=== PATIENT | male | born 1960 | race Caucasian/White ===

== ENCOUNTER 2019-07-16 17:18 | Emergency (ER) | payer MEDICAID, SELFPAY ==
[2019-07-16 17:20] VITALS: BP 141/87; PULSE 89; RESP 18; O2SAT 90; BMI 33.9
--- NOTE | 2019-07-16 17:48 | PC.NURSE ---
pt family member came out saying pt felt like he would pass out. Pt layed back on bed, bp checked , pt stated sudden syncopal feeling clammy to touch. vs wnl.
--- NOTE | 2019-07-16 17:59 | HMH.EDWNDL ---
ED Disposition Clinical Impression: Laceration Disposition: Home, Self-Care Condition on Discharge: Good Instructions: DI for Laceration Repair Referrals: Macrina Kong APRN [Primary Care Provider] - - Critical Care Critical Care Time: No Attestation: On 07/16/19, the high probability of a clinically significant, sudden or life threatening deterioration of the following system(s) required my full and direct attention, intervention and personal management. The time I documented below is in addition to time spent performing reported procedures but includes the following listed in this critical care notation. Medical Decision Making - Medical Records Medical records reviewed: Yes: I reviewed the patient's medical records. - Ari Inquiry Pt receiving controlled substance: No Vital Signs: 07/16/19 17:20 Pulse Rate [Radial] 89 Respiratory Rate 18 Blood Pressure [Right Arm] 141/87 H Blood Pressure Mean [Right Arm] 105 Blood Pressure Source [Right Arm] Automatic Cuff Blood Pressure Position [Right Arm] Sitting 02 Sat by Pulse Oximetry 90 L Oxygen Delivery Method Room Air - Lab Data Lab results reviewed: Yes: I reviewed the patient's lab results. Wound/Laceration HPI - General Chief Complaint: Wound/Laceration Stated Complaint: AO [id number] lac to L hand Time Seen by Provider: 07/16/19 17:59 Mode of Arrival: Ambulatory Source of Information: Patient Limitations: No Limitations Description of Symptoms (Recalled from ER Triage Doc. by RN): sanitation tank washer to left hand - History of Present Illness HPI narrative: 59-year-old male presents with a laceration to his left hand secondary to a tub washer injury. He is got a 3 cm laceration on the top of his hand is not actively bleeding patient denies any other injuries or any other trauma. This injury took place about 20 minutes prior to arrival here in the ED. - Related Data Allergies Allergy/AdvReac Type Severity Reaction Status Date / Time No Known Allergies Allergy Unverified 02/08/17 14:40 [facility] History - Hepatitis A Screen Drug use history?: No High risk sexual behaviors?: No History of sexually transmitted infection?: No Currently employed?: No Childcare worker?: No Do you have indoor plumbing?: Yes Do you have electricity?: Yes Attestation statement:: This patient has been screened for Hepatitis A risk factors. I have reviewed the patient's past medical history: Yes Medical History: Reports:: Diabetes Mellitus Type 2 - Social History Educational Level: Completed High School Alcohol Intake: never Occupational Status: other ROS Obtained: Yes All systems reviewed & no additional complaints - Constitutional Constitutional: Reports system reviewed and no additional complaints, except as docu - Eyes Eyes: Reports system reviewed and no additional complaints, except as docu - ENT Ears, Nose, Mouth, and Throat: Reports system reviewed and no additional complaints, except as docu - Cardiovascular Cardiovascular: Reports system reviewed and no additional complaints, except as docu - Respiratory Respiratory: Yes system reviewed and no additional complaints, except as docu - Gastrointestinal Gastrointestingal: Reports: system reviewed and no additional complaints, except as docu - Genitourinary Male Genitourinary: Reports system reviewed and no additional complaints, except as docu Female Genitourinary: Reports system reviewed and no additional complaints, except as docu - Musculoskeletal Musculoskeletal: Reports system reviewed and no additional complaints, except as docu - Integumentary/Breasts Skin/Breast: Reports system reviewed and no additional complaints, except as docu - Neurologic Neurologic: Reports system reviewed and no additional complaints, except as docu - Endocrine Endocrine: Reports system reviewed and no additional complaints, except as docu - Hematologic/Lymphatic Henatologic/Lymphatic: R
[2019-07-16 19:05] VITALS: BP 141/87; PULSE 89; RESP 18; TEMP 36.7; O2SAT 90
== END 2019-07-16 19:06 | disposition home or self-care (01) ==
PROVIDERS: Emergency Provider Family Medicine; PCP Nurse Practitioner Family
DX: S61.412A Laceration without foreign body of left hand, initial encounter (principal); W31.89XA Contact with other specified machinery, initial encounter; Y92.89 Other specified places as the place of occurrence of the external cause; E11.9 Type 2 diabetes mellitus without complications
CPT/HCPCS: 12002; 99281; 99282

== ENCOUNTER 2022-02-12 09:59 | Emergency (ER) | payer OTHER, SELFPAY ==
[2022-02-12] VITALS (16 sets, daily range): BP systolic 117–151; BP diastolic 65–90; PULSE 76–104; RESP 16–19; TEMP 36.8–36.9; O2SAT 96–99; BMI 33.2
[2022-02-12 10:35] LABS: Coronavirus 19, PCR Not Detected (NotDetected); Influenza A, PCR Not Detected (NotDetected); Influenza B, PCR Not Detected (NotDetected)
[2022-02-12 10:39] LABS: Basophils # 0.1 K/mm3 (0-0.2); Chloride 103 mmol/L (98-107); Eosinophils # 0.1 K/mm3 (0.0-0.4); Eosinophils % 0.9 % (0.1-12.0); Lymphocytes # 0.9 K/mm3 (0.7-4.5); Lymphocytes % 9.7 % (10-50); Mean Corpuscular HGB Conc 33.2 g/dL (31.8-35.4); Mean Corpuscular Hemoglobin 28.2 pg (27.0-31.2); Mean Corpuscular Volume 85.1 fl (80-94); Monocytes # 0.5 K/mm3 (0.1-1.0); Monocytes % 5.2 % (1.7-9.3); Neutrophils # 7.8 K/mm3 (1.8-7.8); Neutrophils % 83.1 % (37.0-80.0); Platelet Count 205 K/mm3 (142-424); Potassium 3.9 mmoL/L (3.5-5.1); Red Blood Count 7.14 M/mm3 (4.60-6.20); Red Cell Distribution Width 14.8 % (11.5-17.5); Sodium 138 mmol/L (136-145); White Blood Count 9.4 K/mm3 (4.8-10.8)
[2022-02-12 10:41] LABS: Hematocrit 60.8 % (42.0-52.0)
[2022-02-12 10:42] LABS: Alanine Aminotransferase 117 U/L (12-78); Albumin Level 4.8 g/dl (3.5-5.0); Albumin/Globulin Ratio 1.5 (1.1-1.8); Alkaline Phosphatase 66 U/L (38-126); Anion Gap 20.9 mEq/L (5-15); Aspartate Amino Transferase 78 U/L (17-59); Bilirubin,Total 0.7 mg/dl (0.2-1.3); Blood Urea Nitrogen 18 mg/dl (9-20); Calcium 9.8 mg/dl (8.4-10.2); Carbon Dioxide 18 mmol/L (22.0-30.0); Creatinine Clearance Estimated 125 mL/min (50-200); Estimated Glomerular Filt Rate 76 ml/min (>60); GFR (African American) 93 ML/MIN (>60); Globulin 3.2 g/dL (1.3-3.2); Glucose 222 mg/dl (74-100)
--- NOTE | 2022-02-12 10:43 | PC.NURSE ---
LAB CALLED WITH CRITICAL LABS. HEMOGLOBIN 20.2 AND HEMATOCRIT 60.8. ER NOTIFIED.
[2022-02-12 10:44] LABS: Hemoglobin 20.2 g/dL (14.1-18.0)
--- NOTE | 2022-02-12 11:15 | PC.NURSE ---
PROVIDED PT WITH WARM BLANKET. FAMILY AT BEDSIDE. CALL LIGHT WITHIN REACH. BED IN LOWEST POSITION.
--- NOTE | 2022-02-12 11:23 | HMH.EDGENADL ---
Discharge Plan Disposition Patient Disposition: Home, Self-Care Condition: Good Chief Complaint: Nausea/Vomiting/Diarrhea Prescriptions Prescriptions: No Action diazepam [Valium] 5 mg tablet 5 mg PO BID PRN (Reason: Anxiety) aspirin [Adult Low Dose Aspirin] 81 mg tablet,delayed release (DR/EC) 81 mg PO DAILY lisinopril 10 mg tablet 10 mg PO DAILY Glyxambi 25-5 mg tablet 1 tab PO DAILY Referrals Follow up/Referrals: Katalina Osuna APRN [Primary Care Provider] - See instructions Activity Restrictions/Add. Instructions Additional Instructions/Restrictions: Diabetic medications per hospitalist. Follow-up with your PCP office as soon as possible. Return to ER for nausea with vomiting, abdominal pain, fever. Clinical Impressions Clinical Impression: Dehydration, Diabetes mellitus, type II Instructions Patient Instructions: DI for Diarrhea and Traveler's Diarrhea -- Adult, DI for Diarrhea and Traveler's Diarrhea -- Child, DI for Nausea -- Adult, DI for Nausea -- Child Discharge ED Provider: [facility] General Chief complaint: Nausea/Vomiting/Diarrhea Stated complaint: vomiting 4 days, unable to eat, weight loss Time Seen by Provider: 02/12/22 10:29 Mode of Arrival: Ambulatory Source of Information: Patient Limitations: No Limitations Description of Symptoms (Recalled from ER Triage Doc. by RN): pt states he has had vomiting for 4 days, decreased appetite, reports he has lost 25lbs in 12 days, denies fever, reports a dull headache in the front of his head and base of his neck, states his lower back has been hurting for 4 days as well History of Present Illness HPI narrative: 61yo M presents to the ER for 4 days of nausea vomiting. No diarrhea. Denies fever. States decreased appetite. Mild epigastric tenderness without other abdominal pain. Has not taken his medication prior to arrival today. No known sick contact. No fever. No history of bowel obstruction. Related Data Home Medications Medication Instructions Recorded Confirmed aspirin 81 mg tablet,delayed 81 mg PO DAILY Blood thinner 08/27/20 02/12/22 release (Adult Low Dose Aspirin) diazepam 5 mg tablet (Valium) 5 mg PO BID PRN Anxiety 08/27/20 02/12/22 empagliflozin 25 mg-linagliptin 5 1 tab PO DAILY Diabetes 04/10/21 02/12/22 mg tablet (Glyxambi) lisinopril 10 mg tablet 10 mg PO DAILY Hypertension 04/10/21 02/12/22 Allergies Allergy/AdvReac Type Severity Reaction Status Date / Time No Known Allergies Allergy Verified 02/12/22 10:33 [facility] Disclaimer: The information contained in this section may have been updated after the patient was seen, as this information can be updated by other users. Medical History Abnormal EKG Diabetes mellitus, type II Dyspnea Family history of heart disease Social History Smoking Status: Former smoker alcohol intake: never substance use type: denies use current occupational status: other Travel in the last 8 weeks: Inside the [place] ROS Obtained: Yes Systems reviewed as appropriate & no additional complaints except as documented Physical Exam General General appearance: alert and in no apparent distress Head Head exam: atraumatic Eye Eye exam: Present normal appearance and PERRL ENT ENT exam: Present normal exam Neck Neck exam: Present normal inspection and trachea midline Chest Chest inspection: Present symmetric chest wall rise Respiratory Respiratory exam: Present normal lung sounds bilaterally Cardiovascular Cardiovascular exam: Present regular rate and normal rhythm Abdominal Exam Abdominal exam: Present soft; Absent distention, tenderness or guarding Extremities Exam Extremities exam: Present normal inspection; Absent edema Neurological Exam Neurological exam: Present alert, oriented X3 and CN II-XII intact Psychi
[2022-02-12 11:27] LABS: Acetone, Serum (Rapid) Small (None Detect)
--- NOTE | 2022-02-12 11:52 | PC.NURSE ---
UPDATED PT ON CARE. FAMILY AT BEDSIDE. CALL LIGHT WITHIN REACH. BED IN LOWEST POSITION.
[2022-02-12 14:35] LABS: Chloride 105 mmol/L (98-107); Potassium 3.9 mmoL/L (3.5-5.1); Sodium 138 mmol/L (136-145)
[2022-02-12 14:37] LABS: Blood Urea Nitrogen 15 mg/dl (9-20); Creatinine Clearance Estimated 156 mL/min (50-200); Estimated Glomerular Filt Rate 99 ml/min (>60); GFR (African American) 120 ML/MIN (>60)
[2022-02-12 14:38] LABS: Anion Gap 18.9 mEq/L (5-15); Calcium 9.1 mg/dl (8.4-10.2); Carbon Dioxide 18 mmol/L (22.0-30.0); Glucose 169 mg/dl (74-100)
--- NOTE | 2022-02-12 15:09 | PC.NURSE ---
PETRA OVIEDO SPEAKING WITH HOSPITALIST AT THIS TIME.
--- NOTE | 2022-02-12 16:30 | PC.NURSE ---
checked on pt at this time, family at BS, IVF still infusing, pt states no needs at this time
[2022-02-12 17:16] LABS: Chloride 103 mmol/L (98-107)
[2022-02-12 17:17] LABS: Potassium 3.4 mmoL/L (3.5-5.1); Sodium 138 mmol/L (136-145)
[2022-02-12 17:19] LABS: Blood Urea Nitrogen 15 mg/dl (9-20); Creatinine Clearance Estimated 156 mL/min (50-200); Estimated Glomerular Filt Rate 99 ml/min (>60); GFR (African American) 120 ML/MIN (>60)
[2022-02-12 17:20] LABS: Calcium 8.9 mg/dl (8.4-10.2); Glucose 182 mg/dl (74-100)
[2022-02-12 17:22] LABS: Hematocrit 53.7 % (42.0-52.0); Red Blood Count 6.29 M/mm3 (4.60-6.20)
[2022-02-12 17:23] LABS: Basophils # 0.1 K/mm3 (0-0.2); Basophils % 0.7 % (0.1-2.0); Eosinophils # 0.1 K/mm3 (0.0-0.4); Eosinophils % 0.9 % (0.1-12.0); Lymphocytes # 1.7 K/mm3 (0.7-4.5); Lymphocytes % 20.8 % (10-50); Mean Corpuscular HGB Conc 32.9 g/dL (31.8-35.4); Mean Corpuscular Hemoglobin 28.1 pg (27.0-31.2); Mean Corpuscular Volume 85.4 fl (80-94); Mean Platelet Volume 7.7 fl (7.4-10.4); Monocytes # 0.5 K/mm3 (0.1-1.0); Monocytes % 6.7 % (1.7-9.3); Neutrophils # 5.7 K/mm3 (1.8-7.8); Neutrophils % 70.9 % (37.0-80.0); Platelet Count 185 K/mm3 (142-424); Red Cell Distribution Width 14.9 % (11.5-17.5)
[2022-02-12 17:36] LABS: Hemoglobin 17.6 g/dL (14.1-18.0)
--- NOTE | 2022-02-12 17:49 | PC.NURSE ---
HOSPITALIST AT BEDSIDE.
--- NOTE | 2022-02-12 18:01 | EXP.MED.CON ---
History of Present Illness *Admission Date: 02/12/22 *Reason for visit:: Nausea, vomiting, weight loss *History of present illness: Patient is a 61-year-old male with past medical history of type 2 diabetes who came to the ER today for 4 days of nausea, vomiting, and weight loss. Patient reports being on Glyxambi for the last 6 months or more. He started ozempic 2 weeks ago, taking his first injection 2 weeks ago, then last injection 1 week ago on Tuesday. He reports feeling fine until 4 days ago when he has not been able to hold anything down, throwing up but no diarrhea, fever chills, abdominal pain. He denies having a bowel movement during this time, but he does admit to passing gas, including during his time here in the ER. I was consulted by Dr. Beasley for possible admission as his anion gap was elevated at 20.9, and then again at 18.9. Urine showed moderate ketones and serum acetone level was small. Clinically patient was overall well-appearing and patient and his family were agreeable with either admission or returning home. Patient was given 3 L of LR and he reported feeling much better after that. His anion gap on our labs calculates to be 15.4, however based on my own calculation his anion gap should be 12. Physical exam is overall normal and reassuring, including moist mucous membranes. Patient was able to eat part of a chicken [place] from [employer]. I advised patient that it would be better to eat chicken noodle soup or may be some applesauce and he said that sounded good to him. Patient advised to stop Ozempic for about a month, or unless advised otherwise by his PCP. Its not clear if his nausea and vomiting was caused by Ozempic or gastroenteritis. I have sent in a prescription for glipizide 5 mg p.o. twice daily as well as Zofran for nausea. [facility] Disclaimer: The information contained in this section may have been updated after the patient was seen, as this information can be updated by other users. Medical History Abnormal EKG Diabetes mellitus, type II Dyspnea Family history of heart disease Social History Smoking Status: Former smoker alcohol intake: never substance use type: denies use current occupational status: other Travel in the last 8 weeks: Inside the [place] Review of Systems Constitutional Constitutional: Denies chills, Reports fatigue, Denies fever(s), Denies frequent falls, Denies headache(s), Reports poor appetite, Reports lethargy and Denies weakness Eyes Eyes: Denies change in vision and Denies loss of vision ENT Ears, Nose, Mouth, and Throat: Denies dizziness, Reports dry mouth, Denies dysphagia, Denies headache(s) and Denies odynophagia *Cardiovascular Cardiovascular: Denies chest pain, Denies chest pain at rest, Denies dyspnea, Denies dyspnea on exertion, Denies edema, Denies irregular heart rhythm, Denies leg edema, Reports lightheadedness and Denies palpitations *Respiratory Respiratory: Denies chest congestion, Denies cough, Denies dyspnea and Denies dyspnea on exertion *Gastrointestinal Gastrointestinal: Denies abdominal pain, Denies constipation, Denies diarrhea, Denies dysphagia, Denies melena, Reports nausea, Denies odynophagia and Reports vomiting *Genitourinary Genitourinary: Denies dysuria *Musculoskeletal Musculoskeletal: Denies abnormal gait, Denies back pain and Denies myalgias *Neurologic Neurologic: Denies abnormal gait, Denies abnormal movements, Denies confusion, Denies convulsions, Denies dizziness, Denies localized weakness, Denies frequent falls, Denies headache(s), Denies loss of vision, Denies memory loss and Denies weakness Psychiatric Psychiatric: Denies anxiety, Denies confusion, Denies depression and Denies memory loss Endocrine Endocrine: Denies cold intolerance, Reports fatigue, Denies heat intolerance and Denies palpitations Exam Data for Last 24 hours Vit
[2022-02-12 18:04] LABS: Anion Gap 15.4 mEq/L (5-15); Carbon Dioxide 23 mmol/L (22.0-30.0)
== END 2022-02-12 18:10 | disposition home or self-care (01) ==
PROVIDERS: Emergency Provider Family Medicine; PCP Nurse Practitioner Family
DX: R42 Dizziness and giddiness (principal); E86.0 Dehydration; R10.13 Epigastric pain; R11.2 Nausea with vomiting, unspecified; R19.7 Diarrhea, unspecified; Z20.822 Contact with and (suspected) exposure to COVID-19; M54.50 Low back pain, unspecified; M54.2 Cervicalgia; R94.31 Abnormal electrocardiogram [ECG] [EKG]; R53.82 Chronic fatigue, unspecified; R63.4 Abnormal weight loss; R53.81 Other malaise; R51.9 Headache, unspecified; I10 Essential (primary) hypertension; E11.9 Type 2 diabetes mellitus without complications; F41.9 Anxiety disorder, unspecified; Z79.82 Long term (current) use of aspirin; Z79.84 Long term (current) use of oral hypoglycemic drugs; Z79.899 Other long term (current) drug therapy; Z68.33 Body mass index [BMI] 33.0-33.9, adult; Z87.891 Personal history of nicotine dependence; Z82.49 Family history of ischemic heart disease and other diseases of the circulatory system
CPT/HCPCS: 80048; 80053; 82009; 85025; 96361; 96374; 99284; C9803; J2405; U0003; U0005

== ENCOUNTER 2022-12-13 15:16 | Emergency (ER) | payer BC, SELFPAY ==
[2022-12-13 15:30] VITALS: BP 121/86; PULSE 78; RESP 19; TEMP 36.7; O2SAT 98; BMI 43.2
--- NOTE | 2022-12-13 15:53 | EXP.UTC ---
Discharge Plan Disposition Patient Disposition: Home, Self-Care Condition: Good Prescriptions Prescriptions: New doxycycline hyclate 100 mg capsule 100 mg PO BID 7 Days Qty: 14 0RF ondansetron 4 mg tablet,disintegrating 4 mg PO Q8H PRN (Reason: nausea and vomiting) Qty: 10 0RF guaifenesin [Mucinex] 600 mg tablet extended release 12hr 600 - 1,200 mg PO BID PRN (Reason: cough/congestion) Qty: 20 0RF No Action lisinopril 10 mg tablet 10 mg PO DAILY Glyxambi 25-5 mg tablet 1 tab PO DAILY simvastatin 5 mg tablet 5 mg PO DAILY Patient Comments: TAKE ONE (1) TABLET EVERY DAY BY ORAL ROUTE. Ozempic 1 mg/dose (4 mg/3 mL) pen injector 4 mg SQ WEEKLY Patient Comments: INJECT ONE (1) MG EVERY WEEK BY SUBCUTANEOUS ROUTE. Referrals Follow up/Referrals: Katalina Osuna APRN [Primary Care Provider] - See instructions Activity Restrictions/Add. Instructions Additional Instructions/Restrictions: Follow up in the clinic tomorrow with Katalina Osuna APRN as discussed in [facility] today Take medications as prescribed Return if needed Straight to ER if any life threatening symptoms Make sure to drink fluids like gatoraid and/or Pedialyte Clinical Impressions Clinical Impression: Sinusitis Qualifiers: Sinusitis location: unspecified location Chronicity: unspecified Qualified Code(s): J32.9 - Chronic sinusitis, unspecified Instructions Patient Instructions: Sinusitis, DI for Sinusitis Discharge ED Provider: Mara Tena [facility] [place] General Stated complaint: upset stomach, weakness Mode of Arrival: Ambulatory Source of Information: Patient Limitations: No Limitations Time Seen by Provider: 12/13/22 15:53 Description of Symptoms (Recalled from Triage Doc. by RN): not feeling well, weak, and nausea HEENT Symptoms (Recalled from RN notes): Yes Resp Symptoms (Recalled from RN notes): No Skin Symptoms (Recalled from RN notes): No MS Symptoms (Recalled from RN notes): No Functional Status (Recalled from RN notes): n/a History of Present Illness Provider Complaint: Patient states that he has been having sinus congestion and drainage in the back of his throat, feeling tired and achy like he gets sometimes when he is getting dehydrated and congestion that feels like is draining into his chest area so today when he was still not feeling well he came in to get checked and see if he could get something for his sinuses Related Data Home Medications Medication Instructions Recorded Confirmed empagliflozin 25 mg-linagliptin 5 1 tab PO DAILY Diabetes 04/10/21 12/13/22 mg tablet (Glyxambi) lisinopril 10 mg tablet 10 mg PO DAILY Hypertension 04/10/21 12/13/22 semaglutide 1 mg/dose (4 mg/3 mL) 4 mg SQ WEEKLY 12/13/22 12/13/22 subcutaneous pen injector (Ozempic) simvastatin 5 mg tablet 5 mg PO DAILY 12/13/22 12/13/22 Previous Rx's Medication Instructions Recorded doxycycline hyclate 100 mg capsule 100 mg PO BID 7 days #14 caps 12/13/22 guaifenesin 600 mg tablet, 600 - 1,200 mg PO BID PRN 12/13/22 extended release 12 hr (Mucinex) cough/congestion #20 tabs ondansetron 4 mg disintegrating 4 mg PO Q8H PRN nausea and 12/13/22 tablet vomiting #10 tabs Allergies Allergy/AdvReac Type Severity Reaction Status Date / Time metformin Allergy Verified 12/13/22 15:51 Worker's Comp Is this a Worker's Comp case?: No [facility] Disclaimer: The information contained in this section may have been updated after the patient was seen, as this information can be updated by other users. Medical History Abnormal EKG Diabetes mellitus, type II Dyspnea Family history of heart disease Social History Smoking Status: Former smoker alcohol intake: never substance use type: denies use current occupational status: other Travel in the last 8 weeks: Inside the [place] ROS Obt
[2022-12-13 16:12] VITALS: BP 121/86; PULSE 78; RESP 19; TEMP 36.7; O2SAT 98
[2022-12-13 16:28] LABS: Basophils # 0.1 K/mm3 (0-0.2); Basophils % 0.6 % (0.1-2.0); Eosinophils # 0.4 K/mm3 (0.0-0.4); Hematocrit 51.9 % (42.0-52.0); Hemoglobin 17.9 g/dL (14.1-18.0); Lymphocytes # 2.4 K/mm3 (0.7-4.5); Lymphocytes % 33.1 % (10-50); Mean Corpuscular HGB Conc 34.4 g/dL (31.8-35.4); Mean Corpuscular Hemoglobin 29.2 pg (27.0-31.2); Mean Corpuscular Volume 84.8 fl (80-94); Mean Platelet Volume 7.9 fl (7.4-10.4); Monocytes # 0.4 K/mm3 (0.1-1.0); Monocytes % 5.8 % (1.7-9.3); Neutrophils # 3.9 K/mm3 (1.8-7.8); Neutrophils % 55.4 % (37.0-80.0); Platelet Count 172 K/mm3 (142-424); Red Blood Count 6.12 M/mm3 (4.60-6.20); Red Cell Distribution Width 14.6 % (11.5-17.5); White Blood Count 7.1 K/mm3 (4.8-10.8)
[2022-12-13 16:33] LABS: Alanine Aminotransferase 52 U/L (12-78); Albumin Level 4.5 g/dl (3.5-5.0); Albumin/Globulin Ratio 1.6 (1.1-1.8); Alkaline Phosphatase 55 U/L (38-126); Aspartate Amino Transferase 44 U/L (17-59); Bilirubin,Total 0.4 mg/dl (0.2-1.3); Blood Urea Nitrogen 15 mg/dl (9-20); Calcium 9.5 mg/dl (8.4-10.2); Carbon Dioxide 24 mmol/L (22.0-30.0); Chloride 104 mmol/L (98-107); Creatinine Clearance Estimated 101 mL/min (50-200); Estimated Glomerular Filt Rate 115 ml/min (>60); GFR (African American) 139 ML/MIN (>60); Globulin 2.9 g/dL (1.3-3.2); Glucose 154 mg/dl (74-100); Sodium 139 mmol/L (136-145); Total Protein,Serum 7.4 g/dl (6.3-8.2)
== END 2022-12-13 16:12 | disposition home or self-care (01) ==
PROVIDERS: Emergency Provider Nurse Practitioner; PCP Nurse Practitioner Family
DX: J01.90 Acute sinusitis, unspecified (principal); R11.0 Nausea; E11.9 Type 2 diabetes mellitus without complications; Z79.84 Long term (current) use of oral hypoglycemic drugs
CPT/HCPCS: 80053; 85025; 99204; 99212; G0463

== ENCOUNTER 2023-06-05 09:38 | Emergency (ER) | payer BC, SELFPAY ==
[2023-06-05 09:55] VITALS: BP 119/74; PULSE 64; RESP 20; TEMP 36.7; O2SAT 94; BMI 35.8
--- NOTE | 2023-06-05 10:08 | ED_ITS ---
Discharge Plan Disposition Patient Disposition: Home, Self-Care Condition: Good Prescriptions Prescriptions: New doxycycline hyclate 100 mg capsule 100 mg PO BID Qty: 20 0RF benzonatate 100 mg capsule 100 mg PO TID PRN (Reason: cough) Qty: 30 0RF guaifenesin [Mucinex] 600 mg tablet extended release 12hr 1,200 mg PO BID PRN (Reason: cough) Qty: 10 0RF No Action lisinopril 10 mg tablet 10 mg PO DAILY Glyxambi 25-5 mg tablet 1 tab PO DAILY diazepam 5 mg tablet 5 mg PO BIDP PRN (Reason: .) Patient Comments: TAKE ONE (1) TABLET TWICE A DAY BY ORAL ROUTE NEEDED. simvastatin 5 mg tablet 5 mg PO DAILY Patient Comments: TAKE ONE (1) TABLET EVERY DAY BY ORAL ROUTE. Ozempic 1 mg/dose (4 mg/3 mL) pen injector 4 mg SQ WEEKLY Patient Comments: INJECT ONE (1) MG EVERY WEEK BY SUBCUTANEOUS ROUTE. Referrals Follow up/Referrals: Katalina Osuna APRN [Primary Care Provider] - See instructions Activity Restrictions/Add. Instructions Additional Instructions/Restrictions: * Start antibiotic today. Be sure to complete entire prescription even if feeling better * Monitor temp. Tylenol every 4 hours as needed and / or ibuprofen every 6 hours as needed ( As long as your primary care physician has told you that it ok to take both. For fever/aches/pains ER if no less than 101 despite Tylenol or Motrin * Humidifier/vaporizer or hot steamy shower * Mucinex during the day for your cough and cough suppressant only at night. Be sure to drink lots of water. Insurance may not cover a prescriptions for mucinex. Might be cheaper to get 400mg tablets and take 2 tablet in the morning, mid-day and evening with lots of water. Tessalon Perles will not cause drowsiness but use at bedtime to help stop cough so that you may get some rest. Follow up IMMEDIATELY for new or worsening of symptoms OR no noticeable improvement over the next 48-72 hours. 911 immediately for any life threatening symptoms such as chest pain or difficulty breathing Clinical Impressions Clinical Impression: Bronchitis Sinusitis Qualifiers: Sinusitis location: unspecified location Chronicity: unspecified Qualified Code(s): J32.9 - Chronic sinusitis, unspecified Instructions Patient Instructions: Acute Bronchitis, DI for Sinusitis Discharge ED Provider: Mara Tena [facility] [place] HPI General Stated complaint: congestion, headache Mode of Arrival: Ambulatory Source of Information: Patient Limitations: No Limitations Time Seen by Provider: 06/05/23 10:08 Description of Symptoms (Recalled from Triage Doc. by RN): PATIENT C/O CONGESTION, HEADACHE, AND FEELING TIRED X 1 WEEK HEENT Symptoms (Recalled from RN notes): Yes Resp Symptoms (Recalled from RN notes): No Skin Symptoms (Recalled from RN notes): No MS Symptoms (Recalled from RN notes): No Functional Status (Recalled from RN notes): WNL History of Present Illness Provider Complaint: Patient states that he has been having sinus congestion and pressure with drainage in the back of his throat making his throat feels scratchy, headache, and fatigue for over a week now States that they have been around grandchild that has strep throat States today he wasnt feeling any better so he came in to get checked Related Data Home Medications Medication Instructions Recorded Confirmed empagliflozin 25 mg-linagliptin 5 1 tab PO DAILY Diabetes 04/10/21 06/05/23 mg tablet (Glyxambi) lisinopril 10 mg tablet 10 mg PO DAILY Hypertension 04/10/21 06/05/23 semaglutide 1 mg/dose (4 mg/3 mL) 4 mg SQ WEEKLY 12/13/22 06/05/23 subcutaneous pen injector (Ozempic) simvastatin 5 mg tablet 5 mg PO DAILY 12/13/22 06/05/23 diazepam 5 mg tablet 5 mg PO BIDP PRN . 06/05/23 06/05/23 Previous Rx's Medication Instructions Recorded benzonatate 100 mg capsule 100 mg PO TID PRN cough #30 caps 06/05/23 doxycycline hyclate 100 mg capsule 100 mg PO BID #20 caps 06/05/23 guaifenesin 600 mg tablet, 1,200 mg (2 x 600 mg) PO BID PRN 06/05/23 extended release 12 hr (Mucinex) cough #10 tabs Allergies Allergy/AdvReac Type Severity Reaction Status Date / Time amoxicillin Allergy Verified 06/05/23 10:05 metformin Allergy Verified 12/13/22 15:51 Worker's Comp Is this a Worker's Comp case?: No [facility] Disclaimer: The information contained in this section may have been updated after the patient was seen, as this information can be updated by other users. Medical History Abnormal EKG Diabetes mellitus, type II Dyspnea Family history of heart disease Social History Smoking Status: Former smoker alcohol intake: never substance use type: denies use current occupational status: other Travel in the last 8 weeks: Inside the [place] ROS Obtained: Yes All systems reviewed & no additional complaints except as documented and Yes Systems reviewed as appropriate & no additional complaints except as documented Constitutional Constitutional: Reports system reviewed and no additional complaints, except as documented and Reports as per HPI ENT Ears, Nose, Mouth, and Throat: Reports system reviewed and no additional complaints, except as documented, Reports as per HPI, Reports sinus pain, Repo rts sinus pressure and Reports sore throat Cardiovascular Cardiovascular: Reports system reviewed and no additional complaints, except as documented and Reports as per HPI Respiratory Respiratory: Reports system reviewed and no additional complaints, except as documented, Reports as per HPI, Denies shortness of breath and Reports cough Gastrointestinal Gastrointestingal: Reports system reviewed and no additional complaints, except as documented and as per HPI Physical Exam General General appearance: alert and in no apparent distress ENT ENT exam: Present mucous membranes moist Expanded ENT Exam Throat exam: Present other (Pharyngeal erythema noted with PND) Respiratory Respiratory exam: Present normal lung sounds bilaterally; Absent respiratory distress or wheezes Cardiovascular Cardiovascular exam: Present regular rate, normal rhythm and normal heart sounds Neurological Exam Neurological exam: Present alert, oriented X3 and normal gait Medical Decision Making Ari Inquiry Pt receiving controlled substance: No Ari was queried for this patient: No Vital Signs: 06/05/23 09:55 Temperature 98.1 F Temperature Source Oral Pulse Rate [Left Brachial] 64 Respiratory Rate 20 Blood Pressure [Left Arm] 119/74 Blood Pressure Mean [Left Arm] 89 Blood Pressure Source [Left Arm] Automatic Cuff Blood Pressure Position [Left Arm] Sitting 02 Sat by Pulse Oximetry 94 L Oxygen Delivery Method Room Air Lab Data Lab results reviewed: Yes I reviewed the patient's lab results. Medical Decision Narrative: Patient states that he is a diabetic but has taken steriods in the past without complications or reactions
[2023-06-05 10:21] LABS: UTC Strep Screen (Rapid) Negative (Negative)
[2023-06-05] MEDS: METHYLPREDNISOLONE SOD SUCC 125MG VIAL 125 MG IM (10:30)
[2023-06-05 10:34] VITALS: BP 119/74; PULSE 64; RESP 20; TEMP 36.7; O2SAT 95
== END 2023-06-05 10:42 | disposition home or self-care (01) ==
PROVIDERS: Emergency Provider Nurse Practitioner; PCP Nurse Practitioner Family
DX: J20.9 Acute bronchitis, unspecified (principal); J32.9 Chronic sinusitis, unspecified; R51.9 Headache, unspecified; R09.81 Nasal congestion; R53.83 Other fatigue; E11.9 Type 2 diabetes mellitus without complications; Z87.891 Personal history of nicotine dependence
CPT/HCPCS: 87880; 96372; 99212; 99214; G0463